=== PATIENT | female | born 1980 | race Caucasian/White ===

== ENCOUNTER 2018-02-13 08:31 | Emergency (ER) | payer SELFPAY ==
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
--- NOTE | 2018-02-13 10:50 | EKG ---
Test Date: 2018-02-13 Test Time: 10:08:31 Link Assembler: DAVIAN MEASUREMENT RESULTS: Intervals: Rate: 73 OH: 136 QRSD: 86 QT: 414 QTc: 456 [place]: P: 65 OH: 136 QRS: 72 T: 56 INTERPRETIVE STATEMENTS: Normal sinus rhythm with sinus arrhythmia normal ECG No previous ECG available for comparison Electronically Signed On 02-13-18 10:49:13 CDT by Toni Tadeo
[2018-02-13 10:53] LABS: Urine Blood 2+ (NEG); Urine Glucose NEGATIVE (NEG); Urine Protein NEGATIVE (NEG); Urine Specific Gravity <1.005 (1.005-1.030)
[2018-02-13 10:54] LABS: Protime INR 1.23
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
[2018-02-13 11:01] LABS: Barbiturates NEGATIVE (NEGATIVE); Benzodiazepines NEGATIVE (NEGATIVE); Cocaine NEGATIVE (NEGATIVE); METHAMPHETAM NEGATIVE (NEGATIVE); Methadone NEGATIVE (NEGATIVE); Opiates NEGATIVE (NEGATIVE); Phencyclidine NEGATIVE (NEGATIVE); THC Cannibis POSITIVE (NEGATIVE)
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
[2018-02-13 11:23] LABS: Absolute Lymphocytes (CBC) 0.8 K/uL (0.7-4.9); Absolute Neutrophil 2.9 K/uL (1.8-8.0); Basophils % 0.6 % (0-1.3); Eosinophils % 0.4 % (0-4.4); Hematocrit 35.8 % (36.0-45.0); Lymphocytes % 17.9 % (15.3-44.8); MCH 39.9 pg (27.0-35.0); MCV 120.2 fL (80-100); MPV 9.6 fL (7.6-11.3); Monocytes % 20.3 % (3.3-12.3); RBC Red Blood Cell Count 2.97 M/uL (3.86-4.86)
[2018-02-13 11:59] LABS: ALT/SGPT 31 U/L (12-78); AST/SGOT 106 U/L (15-37); Albumin 4.1 g/dL (3.4-5.0); Alkaline Phosphatase 151 U/L (45-117); BUN Blood Urea Nitrogen 7 mg/dL (7-18); Bicarbonate 26 mmol/L (21-32); Bilirubin Direct 0.6 mg/dL (0-0.2); Bilirubin Total 1.5 mg/dL (0.2-1.0); Glucose Level 78 mg/dL (74-106); Protein, Total 7.9 g/dL (6.4-8.2); Sodium Level 128 mmol/L (136-145)
[2018-02-13 12:02] LABS: Potassium 2.9 mmol/L (3.5-5.1)
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
[2018-02-13] MEDS ORDERED: POTASSIUM CL SA 10 MEQ TAB PO ONE (12:14)
[2018-02-13 12:19] LABS: Alcohol Serum/Plasma < 3 mg/dL (0-3)
[2018-02-13 12:25] LABS: Anisocytosis 1+; Blood Morphology Comment NOTED (NOT SEEN); Macrocytosis 2+; Platelet Estimate DECR
[2018-02-13 12:50] VITALS: TEMP 97.7
[2018-02-13 12:51] VITALS: BP 128/100; O2SAT 100
== END 2018-02-13 12:44 | disposition home or self-care (01) ==
LOC: ER 08:31
DX: S20.219A Contusion of unspecified front wall of thorax, initial encounter (principal); S80.211A Abrasion, right knee, initial encounter; Y08.89XA Assault by other specified means, initial encounter; Y93.9 Activity, unspecified; Y92.9 Unspecified place or not applicable; I10 Essential (primary) hypertension
CPT/HCPCS: 36415; 70450; 71046; 80048; 80076; 80307; 80320; 80329; 81003; 84703; 85025; 85610; 85730; 93005; 99284

== ENCOUNTER 2023-01-12 17:45 | Emergency (ER) | payer SELFPAY ==
--- OUTSIDE RECORDS SUMMARY | 2023-01-12 17:48 | XMS REPORT | Continuity of Care Document ---
:1980 Author Organization [facility] t Address [address] [place] [address] [address] [place] [address] Care Team Providers Name Role Phone Ronni Dela Cruz Attending Clinician Unavailable Payers Payer Name Policy Type Policy Number Effective Date Expiration Date S ource Problems This patient has no known problems. Allergies, Adverse Reactions, Alerts Allergy Allergy Status Severity Reaction(s) Onset Inactive Treating Comm ents Source Name Type Date Date Clinician No Known DA Active U [facility] Drug 3- Allergie 00:00: s 00 Medications This patient has no known medications. Procedures This patient has no known procedures. Encounters Start End Encounter Admission Attending Care Care Encounter Source Date/Time Date/Time Type Type Clinicians Facility Department ID 2022-11-11 2022-11-11 Emergency Emergency Lanie [facility] [id number] [facility] 22:34:00 22:34:00 Ronni 58 2022-11-11 2022-11-11 Emergency [facility] [id number] [facility] 22:34:00 22:34:00 58 Results Test Description Test Time Test Comments Results Result Comments Source Ethanol Level 2022-11-12 02:38:00 Test Item Value Reference Range Interpretation Comme nts Ethanol (test code = ETOH) 290 mg/dL T he pharmacological response to blood alcohol levels mayvary from individual to individual. The fatal concentrationhas been reported to be >400mg/dL. UA, Urinalysis w [id number] 22:49:00 Test Item Value Reference Range Interpretation Comments Color,Urine (test code = UCOL) Yellow Yellow Clarity,Urine (test code = Clear Clear UCLAR) Ph, Urine (test code = UPH) 8.0 5.0-9.0 N Specific [place],Urine (test <= 1.005 1.005-1.030 N code = USG) Blood,Urine (test code = UBLD) Negative mg/dL Negative Protein,Urine (test code = Negative mg/dL Negative UPRO) Glucose,Urine (UA) (test code Negative mg/dL Negative = UGLU) Ketones,Urine (test code = Negative mg/dL Negative UKET) Nitrate,Urine (test code = Negative Negative UNIT) Bilirubin,Urine (test code = Negative mg/dL Negative UBIL) Urobilinogen,Urine (test code 1.0 E.U./dL Normal = UURO) Leukocyte Esterase,Urine (test Negative mg/dL Negative code = ULEU) RBC,Urine (test code = URBCUF) None Seen /HPF 0-2 WBC,Urine (test code = UWBCUF) None Seen /HPF 0-5 Epithelial Cell,Urine (test 0-5 /HPF 0-5 code = UECUF) Casts,Urine (test code = None Seen /LPF None Seen UCASTUF) Bacteria,Urine (test code = None Seen /hpf None Seen UBACTUF) Drug Screen,[id number] 22:49:00 Test Item Value Reference Range Interpretation Comments PCP Phencyclidine Screen,Urine (test Negative Negative code = PCPU) Amphetamine Screen,Urine (test code Negative Negative = AMPU) Methadone Screen,Urine (test code = Negative Negative METHU) Opiate Screen,Urine (test code = Negative Negative UOPIS) Barbituates Screen,Urine (test code Negative Negative = BARBU) Benzodiazepines Screen,Urine (test Negative Negative code = UBENZS) Cocaine Screen,Urine (test code = Negative Negative UCOCS) Cannabinoid Screen,Urine (test code Positive Negative A = UTHCS) Propoxyphene Screen, Urine (test Negative Negative code = UPROP) Smear [id number] 22:46:00 Test Item Value Reference Range Interpretation Comments Platelet Estimate (test Decreased Normal code = PLTEST) Platelet Morphology Comment Normal Morphology Normal (test code = PLTCOMM) RBC Morphology (test code = Abnormal Normal RM) Macrocytosis (test code = 1+ None Seen A MACROC) Complete Blood Count Auto [id number] 22:46:00 Test Item Value Reference Range Interpretation Comments White Blood Count 3.3 x10 3/uL 4.4-10.5 L (test code = WBCT) Red Blood Count (test 3.24 x10 6/uL 3.75-5.20 L code = RBC) Hemoglobin (test code 11.4 g/dL 12.2-14.8 L = HGBT) Hematocrit (test code 34.3 % 36.5-44.4 L = HCTT) Mean Corpuscular 105.90 fL 80.00-100.00 H Volume (test code = MCV) Mean Corpuscular 35.2 pg 27.0-32.5 H Hemoglobin (test code = MCH) Mean Corpuscular HGB 33.20 g/dL 32.00-37.50 N Conc (test code = MCHC) RDW Coefficient of 13.3 % 11.5-14.5 N Variation (test code = RDWCV) Platelet Count (test 34 x10 3/uL 140.0-440.0 LL Critica l value code = PLTT) called to leonor laguna back by YVONNE SLATER on: 11/11/22 at 234 6by [id number]. Mean Platelet Volume 11.5 fL (test code = MPV) Immature Granulocytes 0.3 % 0.0-5.0 N % (Auto) (test code = IMMGRAN%) Neutrophils % (Auto) 42.5 % 36.0-70.0 N (test code = NE%) Lymphocytes % (Auto) 46.4 % 12.0-44.0 H (test code = LY%) Monocytes % (Auto) 8.1 % 0.0-11.0 N (test code = MO%) Eosinophils % (Auto) 2.4 % 0.0-7.0 N (test code = EO%) Basophils % (Auto) 0.3 % 0.0-2.0 N (test code = BA%) Immature Granulocytes 0.01 x10 3/uL # (Auto) (test code = IMMGRAN#) Neutrophils # (Auto) 1.4 x10 3/uL 1.6-7.4 L (test code = NE#) Lymphocytes # (Auto) 1.55 x10 3/uL 0.50-4.60 N (test code = LY#) Monocytes # (Auto) 0.27 x10 3/uL 0.00-1.20 N (test code = MO#) Eosinophils # (Auto) 0.08 x10 3/uL 0.00-0.74 N (test code = EO#) Basophils # (Auto) 0.01 x10 3/uL 0.00-0.21 N (test code = BA#) nRBC Abs (test code = 0 NRBCA) nRBC Pct (test code = 0 % NRBCP) Comprehensive Metabolic [id number] 22:46:00 Test Item Value Reference Range Interpretation Comments SODIUM (test code = NA) 147.0 mmol/L 136.0-145.0 H Potassium,K (test code = 3.6 mmol/L 3.0-5.1 N K) Chloride (test code = 110 mmol/L 98-107 H CL) Carbon Dioxide (test 28 mmol/L 20-31 N code = CO2) Anion Gap (test code = 9 mmol/L 5-15 N GAP) Blood Urea Nitrogen 7 mg/dL 9-23 L (test code = BUN) Creatinine (test code = 0.53 mg/dL 0.55-1.02 L CREATT) Creatinine Clr Calc 115.55 Pharmacy (test code = mL/min CRCLPHA) Estimated Glomerular 119 See_Comment Reporte d eGFR is Filt Rate (test code = based on the EGFR.XX) CKD-EPI 202 equation thatdo es not use a race coefficient. Additional information can be found at:[id number] cb_ egfr_summary_fl adriana 5.pdf (kidney.o rg) [Automated message] The system which generated this result transmit nick reference range : >=90 ml/min/1.73m2. The reference range was not used to interpret this result as normal/abnormal . BUN/Creatinine Ratio 13 ratio 10-20 N (test code = BCRATIO) Glucose (test code = 89 mg/dL 74-106 N GLU) Osmolality,Calculated 300.5 (test code = OSMOC) Calcium (test code = CA) 8.6 mg/dL 8.3-10.6 N Bilirubin,Total (test 1.4 mg/dL 0.2-1.1 H code = BILIT) Aspartate Amino 61 U/L 0-34 H Transferase (test code = AST) Alanine Aminotransferase 17 U/L 10-49 N (test code = ALT) Total Protein (test code 6.3 g/dL 5.7-8.2 N = TP) Albumin Level (test code 3.2 g/dL 3.2-4.8 N = ALB) Globulin (test code = 3.1 mg/dL 2.3-3.5 N GLOB) Albumin/Globulin Ratio 1.0 ratio 0.8-2.0 N (test code = AGRATIO) Alkaline Phosphatase 79 U/L 46-116 N (test code = ALP) Ethanol [id number] 22:46:00 Test Item Value Reference Range Interpretation Comments Ethanol (test code 322 mg/dL The pharm acological = ETOH) response to blo od alcohol levels mayvary from individual to i ndividual. The fatal brenda ntrationhas been reported t o be >400mg/dL. Coronavirus NAAT, [id number] 22:46:00 Test Item Value Reference Range Interpretation Comments Coronavirus NAAT, COVD19 Reference Range: (test code = Negative [id number]) Coronavirus NAAT, COVD19 ical-devices/emergenc (test code = s-tpc-dytqhmjxytlmqs. [id number]) SARS-CoV-2 NAAT Result: Negative by RT-PCR (test code = SARS-CoV-2 NAAT Result:)
--- NOTE | 2023-01-12 18:24 | ER ---
Nurse's Notes [facility] Name: Ranjana Shearer Age: 42 yrs Sex: Female : 1980 Arrival Date: 01/12/2023 Time: 17:45 Bed IW4 Private MD: Diagnosis: Other chronic pain Presentation: 01/12 18:18 Chief complaint: Pain all over x 1 week. Coronavirus screen: At this time, the client hb does not indicate any symptoms associated with coronavirus-19. Ebola Screen: No symptoms or risks identified at this time. Initial Sepsis Screen: Does the patient meet any 2 criteria? No. Patient's initial sepsis screen is negative. Does the patient have a suspected source of infection? No. Patient's initial sepsis screen is negative. Risk Assessment: Do you want to hurt yourself or someone else? Patient reports no desire to harm self or others. Onset of symptoms was January 05, 2023. 18:18 Method Of Arrival: Ambulatory hb 18:21 Acuity: ARABELLA 4 hb Triage Assessment: 18:21 General: Appears in no apparent distress. Behavior is calm, cooperative. Pain: Pain hb currently is 10 out of 10 on a pain scale. Neuro: Level of Consciousness is awake, alert, obeys commands, Oriented to person, place, time, situation. Cardiovascular: Patient's skin is warm and dry. Respiratory: Respiratory effort is even, unlabored, Respiratory pattern is regular, symmetrical. Historical: - Allergies: 18:19 No Known Allergies; hb - Home Meds: 18:19 Fluoxetine Oral [Active]; Seroquel Oral [Active]; Trazodone Oral [Active]; pramipexole hb oral [Active]; - PMHx: 18:19 elevated liver enzymes; Hyperlipidemia; Hypertension; Depressive disorder; hb - Immunization history:: Adult Immunizations up to date. - Social history:: Smoking status: Patient reports the use of cigarette tobacco products. Vital Signs: 18:18 BP 135 / 87; Pulse 91; Resp 16; Temp 98.2; Pulse Ox 100% on R/A; hb ED Course: 17:49 Patient arrived in ED. mr 18:06 [facility]C [facility] snw 18:07 Ortiz Vargas MD is Attending Physician. snw 18:21 Triage completed. hb 18:21 Arm band placed on. hb Administered Medications: 18:25 Drug: Ketorolac IM 30 mg Route: IM; Site: right deltoid; hb Outcome: 18:23 Discharge ordered by . anne 18:27 Patient left the ED. hb Signatures: Rosa Vasquez, KELLY-C PRODUCTION REPRODUCTION MANAGER-Csnw Neda Hadley Heather, RN RN hb
--- NOTE | 2023-01-12 18:24 | EDPHYS ---
Physician Documentation [facility] Name: Ranjana Shearer Age: 42 yrs Sex: Female : 1980 Arrival Date: 01/12/2023 Time: 17:45 Bed IW4 Private MD: ED Physician Ortiz Vargas Historical: - Allergies: 01/12 18:19 No Known Allergies; hb - Home Meds: 18:19 Fluoxetine Oral [Active]; Seroquel Oral [Active]; Trazodone Oral [Active]; pramipexole hb oral [Active]; - PMHx: 18:19 elevated liver enzymes; Hyperlipidemia; Hypertension; Depressive disorder; hb - Immunization history:: Adult Immunizations up to date. - Social history:: Smoking status: Patient reports the use of cigarette tobacco products. ROS: 18:24 Constitutional: Negative for fever, chills, and weight loss, chronic pain from snw neuropathy/RLS. Pt states she has had pain all over for the past week. No trauma, no fever, no other s/s Eyes: Negative for injury, pain, redness, and discharge, ENT: Negative for injury, pain, and discharge, Neck: Negative for injury, pain, and swelling, Cardiovascular: Negative for chest pain, palpitations, and edema, Respiratory: Negative for shortness of breath, cough, wheezing, and pleuritic chest pain, Abdomen/GI: Negative for abdominal pain, nausea, vomiting, diarrhea, and constipation, Back: Negative for injury and pain, : Negative for injury, bleeding, discharge, and swelling, MS/Extremity: Negative for injury and deformity, Skin: Negative for injury, rash, and discoloration, Neuro: Negative for headache, weakness, numbness, tingling, and seizure, Psych: Negative for depression, anxiety, suicide ideation, homicidal ideation, and hallucinations. Exam: 18:24 Constitutional: This is a well developed, well nourished patient who is awake, alert, snw and in no acute distress. Head/Face: Normocephalic, atraumatic. Eyes: Pupils equal round and reactive to light, extra-ocular motions intact. Lids and lashes normal. Conjunctiva and sclera are non-icteric and not injected. Cornea within normal limits. Periorbital areas with no swelling, redness, or edema. ENT: Nares patent. No nasal discharge, no septal abnormalities noted. Tympanic membranes are normal and external auditory canals are clear. Oropharynx with no redness, swelling, or masses, exudates, or evidence of obstruction, uvula midline. Mucous membranes moist. Neck: Trachea midline, no thyromegaly or masses palpated, and no cervical lymphadenopathy. Supple, full range of motion without nuchal rigidity, or vertebral point tenderness. No Meningismus. Chest/axilla: Normal chest wall appearance and motion. Nontender with no deformity. No lesions are appreciated. Cardiovascular: Regular rate and rhythm with a normal S1 and S2. No gallops, murmurs, or rubs. Normal PMI, no JVD. No pulse deficits. Respiratory: Lungs have equal breath sounds bilaterally, clear to auscultation and percussion. No rales, rhonchi or wheezes noted. No increased work of breathing, no retractions or nasal flaring. Abdomen/GI: Soft, non-tender, with normal bowel sounds. No distension or tympany. No guarding or rebound. No evidence of tenderness throughout. Back: No spinal tenderness. No costovertebral tenderness. Full range of motion. Skin: Warm, dry with normal turgor. Normal color with no rashes, no lesions, and no evidence of cellulitis. MS/ Extremity: Pulses equal, no cyanosis. Neurovascular intact. Full, normal range of motion. Neuro: Awake and alert, GCS 15, oriented to person, place, time, and situation. Cranial nerves II-XII grossly intact. Motor strength 5/5 in all extremities. Sensory grossly intact. Cerebellar exam normal. Normal gait. Psych: Awake, alert, with orientation to person, place and time. Behavior, mood, and affect are within normal limits. Vital Signs: 18:18 BP 135 / 87; Pulse 91; Resp 16; Temp 98.2; Pulse Ox 100% on R/A; hb MDM: 18:23 Patient medically screened. snw Administered Medications: 18:25 Drug: Ketorolac IM 30 mg Route: IM; Site: right deltoid; hb Disposition Summary: 01/12/23 18:23 Discharge Ordered Location: Home snw Condition: Stable snw Diagnosis - Other chronic pain snw Followup: snw - With: Emergency Department - When: As needed - Reason: Worsening of condition Followup: snw - With: Private Physician - When: 2 - 3 days - Reason: Recheck today's complaints, Continuance of care, Re-evaluation by your physician Discharge Instructions: - Discharge Summary Sheet snw - Chronic Pain, Adult snw Forms: - Medication Reconciliation Form snw - Thank You Letter snw - Antibiotic Education snw - Prescription Opioid Use snw Signatures: Rosa Vasquez, KELLY-C [employer]UP[employer] MELTING SUPERVISOR-Csnw Imani Burr, RN RN hb
[2023-01-12] MEDS ORDERED: KETOROLAC 30 MG/ML INJ ONE (18:30)
[2023-01-12 19:00] VITALS: BP 135/87; TEMP 98.2; O2SAT 100
== END 2023-01-12 18:27 | disposition home or self-care (01) ==
LOC: ER 17:45
DX: G89.29 Other chronic pain (principal)

== ENCOUNTER 2023-05-05 17:27 | Observation (INO) | payer SELFPAY ==
--- OUTSIDE RECORDS SUMMARY | 2023-05-05 17:30 | XMS REPORT | Continuity of Care Document ---
:1980 Author Organization [facility] t Address [address] [place] [address]. [address] [place] [address] Care Team Providers Name Role Phone Ronni Dela Cruz Attending Clinician Unavailable CÉSAR Attending Clinician Unavailable CÉSAR Admitting Clinician Unavailable Payers Payer Name Policy Type Policy Number Effective Date Expiration Date S ource Problems This patient has no known problems. Allergies, Adverse Reactions, Alerts Allergy Allergy Status Severity Reaction(s) Onset Inactive Treating Comm ents Source Name Type Date Date Clinician No Known DA Active U [facility] Drug 3-19 Allergie 00:00: s 00 Medications This patient has no known medications. Procedures This patient has no known procedures. Encounters Start End Encounter Admission Attending Care Care Encounter Source Date/Time Date/Time Type Type Clinicians Facility Department ID 2022-11-11 2022-11-11 Emergency Emergency Lanie [facility] [id number] [facility] 22:34:00 22:34:00 Ronni 58 2022-11-11 2022-11-11 Emergency [facility] [id number] 26 [facility] 22:34:00 22:34:00 58 2022-03-21 2022-03-21 Outpatient BONI DESIR [facility] [id number] [place] 00:00:00 00:00:00 HN 0727 da [facility] Outre h Program Results Test Description Test Time Test Comments Results Result Comments Source Ethanol Level 2022-11-12 02:38:00 Test Item Value Reference Range Interpretation Comme nts Ethanol (test code = ETOH) 290 mg/dL T he pharmacological response to blood alcohol levels mayvary from individual to individual. The fatal concentrationhas been reported to be >400mg/dL. Drug Screen,[id number] 22:49:00 Test Item Value Reference Range Interpretation [...] Urine (test Negative Negative code = UPROP) UA, Urinalysis w [id number] 22:49:00 Test Item Value Reference Range Interpretation Comments Color,Urine (test code = UCOL) Yellow Yellow Clarity,Urine (test code = Clear Clear UCLAR) Ph, Urine (test code = UPH) 8.0 5.0-9.0 N Specific [place],Urine (test <= 1.005 1.005-1.030 N code = [...] = None Seen /hpf None Seen UBACTUF) Comprehensive Metabolic [id number] 22:46:00 Test Item Value Reference Range Interpretation [...] code = based on the EGFR.XX) CKD-EPI 2020 equation thatdo es not use a race coefficient. Additional information can be found at:[id number] cb_ egfr_summary_fl adriana 5.pdf (kidney.o rg) [Automated [...] 46-116 N (test code = ALP) Ethanol [id number] 22:46:00 Test Item Value Reference Range Interpretation Comments Ethanol (test code 322 mg/dL The pharm acological = ETOH) response to blo od alcohol levels mayvary from individual to i ndividual. The fatal brenda ntrationhas been reported t o be >400mg/dL. Coronavirus NAAT, [id number] 22:46:00 Test Item Value Reference Range Interpretation Comments Coronavirus NAAT, COVD19 Reference Range: (test code = Negative [id number]) Coronavirus NAAT, COVD19 ical-devices/emergenc (test code = d-rfu-teavmikrhgoyvb. [id number]) SARS-CoV-2 NAAT Result: Negative by RT-PCR (test code = SARS-CoV-2 NAAT Result:) Smear [id number] 22:46:00 Test Item Value Reference Range Interpretation Comments Platelet Estimate (test Decreased Normal code = PLTEST) Platelet Morphology Comment Normal Morphology Normal (test code = PLTCOMM) RBC Morphology (test code = Abnormal Normal RM) Macrocytosis (test code = 1+ None Seen A MACROC) Complete Blood Count Auto [id number] 22:46:00 Test Item Value Reference Range Interpretation [...] leonor laguna back by YVONNE SLATER on: 03/19/23 at 234 6by [id number]. Mean Platelet Volume [...]
[2023-05-05 18:17] LABS: Absolute Lymphocytes (CBC) 1.1 K/uL (0.7-4.9); Hematocrit 36.2 % (36.0-45.0); Lymphocytes % 17.5 % (15.3-44.8); MCV 102.1 fL (80-100); RBC Red Blood Cell Count 3.55 M/uL (3.86-4.86)
[2023-05-05] MEDS ORDERED: ONDANSETRON 4 MG/2 ML VIAL ONE (18:28)
[2023-05-05] MEDS ORDERED: NA CHLORIDE 0.9% 1,000 ML ONE (18:28)
[2023-05-05] MEDS ORDERED: FAMOTIDINE 20 MG/2 ML VIAL IV ONE (18:28)
[2023-05-05 18:37] LABS: Specific Gravity 1.019 (1.005-1.030); Urine Bacteria None Seen /HPF (<20); Urine Bilirubin NEGATIVE (Negative); Urine Blood Negative (Negative); Urine Clarity Extremely Turbid (Clear); Urine Color Yellow (Yellow); Urine Glucose NEGATIVE (Negative); Urine Mucus Slight /HPF (None Seen); Urine Protein NEGATIVE (Negative); Urine Trichomonas Present /HPF (None Seen); Urine Urobilinogen Normal (Normal); Urine pH 5.5 (5.0-7.0)
[2023-05-05 18:37] LABS: Bilirubin Total 2.1 mg/dL (0.2-1.0); Potassium 2.7 mEq/L (3.5-5.1); Protein, Total 7.9 g/dL (6.4-8.2)
[2023-05-05 18:44] LABS: Barbiturates NEGATIVE (NEGATIVE); Benzodiazepines NEGATIVE (NEGATIVE); Cocaine NEGATIVE (NEGATIVE); METHAMPHETAM NEGATIVE (NEGATIVE); Methadone NEGATIVE (NEGATIVE); Opiates NEGATIVE (NEGATIVE); Phencyclidine NEGATIVE (NEGATIVE); THC Cannibis POSITIVE (NEGATIVE)
[2023-05-05 18:53] LABS: Platelets 55 thou/uL (152-406)
[2023-05-05] MEDS ORDERED: MORPHINE 4 MG/ML SYR ONE (19:27)
[2023-05-05 22:03] LABS: Blood Morphology Comment NOT SEEN (NOT SEEN); Platelet Estimate DECR; White Blood Cell Scan OK (OK)
[2023-05-05] MEDS ORDERED: FENTANYL CITR 100 MCG/2 ML ONE (22:03)
--- NOTE | 2023-05-05 22:33 | RAD REPORT ---
EXAM DESCRIPTION: CT - Abdomen Pelvis W Contrast - 05/05/2023 10:12 pm CLINICAL HISTORY: ABD PAIN COMPARISON: No comparisons TECHNIQUE: Thin cut axial CT imaging of the abdomen and pelvis was performed following intravenous a dministration of 78 mL Isovue 300. Multiplanar reformats were generated and reviewed. All CT scans are performed using dose optimization technique as appropriate and may include automated exposure control or mA/KV adjustment according to patient size. FINDINGS: No suspicious findings in the lung bases. The liver shows nodular contour, suggesting cirrhosis. Adrenal glands, spleen, and pancreas show no s uspicious findings. Gallbladder is markedly distended with numerous small layering dependent calculi. There may be pericholecystic fat stranding, mild, although motion artifact in the upper abdomen some what limits evaluation. Symmetric renal function is seen with no hydronephrosis or suspicious renal mass. No dilated bowel loops or bowel wall thickening. No free air, free fluid or inflammatory stranding. N o hernia, mass or bulky lymphadenopathy. The urinary bladder is without significant finding. No suspicious bony findings. IMPRESSION: Distended gallbladder with numerous dependent layering small calculi. Suggestion of mild pericholecystic fat stranding. Please correlate clinically for evidence of acute cholecystitis. No other acute intra-abdominal process.
[2023-05-05] MEDS ORDERED: POTASSIUM CL SA 10 MEQ TAB PO ONE (22:42)
[2023-05-05] MEDS ORDERED: KCL 20 MEQ/100 mL IVPB 100 ML IV ONE (22:43)
[2023-05-05 22:50] LABS: Specific Gravity 1.019 (1.005-1.030)
[2023-05-06] MEDS ORDERED: PIPERACIL/TAZO 3.375 GM VIAL IV ONE (00:15)
[2023-05-06] MEDS ORDERED: NA CHLORIDE 0.9% 100 ML ONE (00:15)
--- NOTE | 2023-05-06 00:30 | EDPHYS ---
Physician Documentation [facility] Name: Ranjana Shearer Age: 43 yrs Sex: Female : 1980 Arrival Date: 05/05/2023 Time: 17:27 Bed 17 Private MD: ED Physician Luis Mas HPI: 05/05 18:43 This 43 yrs old Female presents to ER via Ambulatory with complaints of abdominal pain. sb4 18:43 The patient presents with abdominal pain in the epigastric area. Onset: The sb4 symptoms/episode began/occurred today. The symptoms do not radiate. Associated signs and symptoms: Pertinent positives: nausea, vomiting, and diarrhea, Pertinent negatives: dysuria, fever. The symptoms are described as burning. Modifying factors: The symptoms are alleviated by nothing, the symptoms are aggravated by nothing. The patient has not experienced similar symptoms in the past. The patient has not recently seen a physician. Historical: - Allergies: 17:48 No Known Allergies; nj1 - PMHx: 17:48 depressive disorder; elevated liver enzymes; Hyperlipidemia; Hypertension; nj1 - Immunization history:: Client reports receiving the 2nd dose of the Covid vaccine. - Social history:: Smoking status: Patient reports the use of cigarette tobacco products, smokes one pack cigarettes per day. ROS: 18:43 Constitutional: Negative for fever, chills, and weight loss. sb4 18:43 Abdomen/GI: Positive for abdominal pain, nausea, vomiting, and diarrhea. 18:43 All other systems are negative. Exam: 18:43 Head/Face: Normocephalic, atraumatic. Eyes: Extra-ocular motions intact. Periorbital sb4 areas with no swelling, redness, or edema. ENT: Mucous membranes moist. Cardiovascular: Regular rate and rhythm with a normal S1 and S2. Respiratory: Lungs have equal breath sounds bilaterally, clear to auscultation and percussion. No rales, rhonchi or wheezes noted. No increased work of breathing, no retractions or nasal flaring. MS/ Extremity: Pulses equal, no cyanosis. Neurovascular intact. Full, normal range of motion. 18:43 Constitutional: The patient appears alert, awake, in obvious distress, moderately distressed. 18:43 Skin: heat rash, on the chest. Vital Signs: 17:39 BP 158 / 93; Pulse 62; Resp 16; Pulse Ox 100% on R/A; db 17:46 BP 158 / 93; Pulse 60; Resp 17; Temp 97.6(O); Pulse Ox 100% on R/A; Weight 81.65 kg; nj1 Height 5 ft. 3 in. ; Pain 06/04; 18:00 BP 153 / 79; Pulse 57; Resp 16; Pulse Ox 100% ; db 19:15 BP 105 / 82; Pulse 55; Resp 18; Pulse Ox 96% ; cm10 20:00 BP 136 / 84; Pulse 43; Resp 18; Pulse Ox 99% on R/A; cm10 20:30 BP 118 / 66; Pulse 50; Resp 18; Pulse Ox 99% ; cm10 21:50 BP 129 / 69; Pulse 53; Resp 18; Pulse Ox 100% ; cm10 22:30 BP 139 / 82; Pulse 48; Resp 18; Pulse Ox 100% on R/A; cm10 23:00 BP 148 / 77; Pulse 52; Resp 18; Pulse Ox 100% ; cm10 23:30 BP 142 / 83; Pulse 49; Resp 18; Pulse Ox 97% on R/A; cm10 05/06 00:07 BP 150 / 80; Pulse 49; Resp 18; Pulse Ox 97% ; cm10 00:30 BP 147 / 82; Pulse 49; Resp 18; Pulse Ox 98% ; cm10 01:00 BP 155 / 82; Pulse 49; Resp 18; Pulse Ox 98% ; cm10 05/05 17:46 Body Mass Index 31.89 (81.65 kg, 160.02 cm) nj1 17:46 Pain Scale: Adult nj MDM: 05/05 17:36 Patient medically screened. sb4 18:43 Differential diagnosis: cholecystitis, Cholelithiasis, gastritis, gastroesophageal sb4 reflux disease, non-specific abd pain, pancreatitis, Peptic Ulcer Disease. 05/06 00:28 Data reviewed: vital signs, nurses notes, lab test result(s), radiologic studies, I sb4 have discussed the patient's presentation/case with the attending Emergency Department Physician; and as a result, I will admit patient. Consideration of Admission/Observation Patient was admitted/placed on observation. Management of patient was discussed with the following: Hospitalist: GI Dr. Benedict, agrees to consult, requests MRCP in morning. General Surgery Dr. Gómez, agrees to consult. Requests patient NPO. Care significantly affected by the following chronic conditions: Hypertension. Counseling: I had a detailed discussion with the patient and/or guardian regarding the historical points, exam findings, and any diagnostic results supporting the discharge/admit diagnosis, lab results, radiology results, the need for further work-up and treatment in the hospital. 05/05 17:45 Order name: CBC with Diff; Complete Time: 22:07 [facility] 05/05 17:45 Order name: CMP; Complete Time: 18:39 [facility] 05/05 17:45 Order name: Lipase; Complete Time: 18:39 [facility] 05/05 17:45 Order name: Test, Urine; Complete Time: 22:52 [facility] 05/05 17:45 Order name: Urinalysis w/ reflexes; Complete Time: 18:39 [facility] 05/05 18:22 Order name: UDS; Complete Time: 18:46 [facility] 05/05 18:40 Order name: Urine Culture [facility] 05/05 22:04 Order name: CBC Smear Scan; Complete Time: 22:07 [facility] 05/06 01:09 Order name: Liver (Hepatic) Function [facility] 05/06 01:09 Order name: Urinalysis w/ reflexes [facility] 05/06 01:09 Order name: Basic Metabolic Panel [facility] 05/06 01:09 Order name: Basic Metabolic Panel [facility] 05/06 01:09 Order name: CBC with Automated Diff [facility] 05/06 01:09 Order name: CBC with Automated Diff [facility] 05/06 01:09 Order name: Comprehensive Metabolic Panel [facility] 05/06 01:09 Order name: Comprehensive Metabolic Panel [facility] 05/06 01:09 Order name: Protime (+INR) [facility] 05/06 01:09 Order name: Protime (+INR) [facility] 05/05 17:45 Order name: CT Abd/Pelvis - IV Contrast Only; Complete Time: 22:36 [facility] 05/05 22:37 Order name: US Abdomen Limited [facility] 05/06 01:09 Order name: CONS Physician Consult [facility] 05/06 01:09 Order name: CONS Physician Consult [facility] 05/06 01:09 Order name: NPO [facility] 05/05 17:45 Order name: IV Saline Lock; Complete Time: 18:28 [facility] 05/05 17:45 Order name: Labs collected and sent; Complete Time: 18:28 sb4 Administered Medications: 05/05 18:15 Drug: NS 0.9% IV 1000 ml Route: IV; Rate: 1 bolus; Site: left antecubital; 19:00 Follow up: Response: No adverse reaction; IV Status: Completed infusion; IV Intake: cm10 1000ml 18:15 Drug: Famotidine IVP 20 mg Route: IVP; Site: left antecubital; 05/06 01:33 Follow up: Response: No adverse reaction [facility] 05/05 18:15 Drug: Ondansetron IVP 4 mg Route: IVP; Site: left antecubital; 05/06 01:33 Follow up: Response: No adverse reaction [facility] 05/05 19:16 Drug: morphine IVP or IV 4 mg Route: IVP; Infused Over: 4 mins; Site: left hand; 05/06 00:55 Follow up: Response: No adverse reaction [facility] 05/05 21:56 Drug: fentaNYL (PF) IVP 50 mcg Route: IVP; Site: left upper arm; [facility] 05/06 00:54 Follow up: Response: No adverse reaction [facility] 05/05 22:45 Drug: Potassium Chloride IV 20 mEq Route: IV; Rate: calculated rate; Site: left hand; [facility] 05/06 00:55 Follow up: Response: No adverse reaction; IV Status: Completed infusion; IV Intake: cm10 100ml 05/05 22:45 Drug: Potassium Chloride PO 40 mEq Route: PO; [facility] 05/06 00:54 Follow up: Response: No adverse reaction [facility] 00:14 Drug: Piperacillin-Tazobactam IVPB 3.375 grams Route: IVPB; Infused Over: 60 mins; 10 Site: left hand; 01:30 Follow up: Response: No adverse reaction; IV Status: Completed infusion; IV Intake: cm10 100ml Disposition Summary: 05/06/23 00:29 Hospitalization Ordered Hospitalization Status: Inpatient Admission sb4 Provider: Juancarlos Willett Location: Telemetry/[facility] (Inpatient) sb4 Condition: Fair sb4 Problem: new sb4 Symptoms: are unchanged sb4 Bed/Room Type: Standard sb4 Room Assignment: 427(05/06/23 01:19) mw Diagnosis - Acute cholecystitis sb4 Forms: - Medication Reconciliation Form sb4 - SBAR form sb4 - Leadership Thank You Letter sb4 Addendum: 05/08/2023 23:26 Co-signature as Attending Physician, Luis Mas MD I reviewed the patient's care r n provided by the Advanced Practice Provider and agree with the diagnosis and treatment plan. Signatures: Dispatcher [employer] EDKY Danisha Bustamante RN RN mw Nieto, Roman, MD MD rn Benton, Danielle RN Leisa Shultz, PAEmily PAEmily sb4 Donna Palmer RN RN nj1 Belkis Martínez RN RN cm10 Corrections: (The following items were deleted from the chart) 05/06 01:19 00:29 sbHumberto pantoja
--- NOTE | 2023-05-06 00:30 | ER ---
Nurse's Notes [facility] Name: Ranjana Shearer Age: 43 yrs Sex: Female : 1980 Arrival Date: 05/05/2023 Time: 17:27 Bed 17 Private MD: Diagnosis: Acute cholecystitis Presentation: 05/05 17:46 Chief complaint: Patient states: Abdominal pain, nausea, vomiting and diarrhea that nj1 started a couple hours ago. Coronavirus screen: Vaccine status: Patient reports receiving the 2nd dose of the covid vaccine. Ebola Screen: Patient denies travel to an Ebola-affected area in the 21 days before illness onset. Initial Sepsis Screen: Does the patient meet any 2 criteria? No. Patient's initial sepsis screen is negative. Does the patient have a suspected source of infection? No. Patient's initial sepsis screen is negative. Risk Assessment: Do you want to hurt yourself or someone else? Patient reports no desire to harm self or others. Onset of symptoms was May 05, 2023. 17:46 Method Of Arrival: Ambulatory [facility] 17:46 Acuity: ARABELLA 3 nj1 Historical: - Allergies: 17:48 No Known Allergies; nj1 - PMHx: 17:48 depressive disorder; elevated liver enzymes; Hyperlipidemia; Hypertension; nj1 - Immunization history:: Client reports receiving the 2nd dose of the Covid vaccine. - Social history:: Smoking status: Patient reports the use of cigarette tobacco products, smokes one pack cigarettes per day. Screenin:29 [facility] ED Fall Risk Assessment (Adult) Score/Fall Risk Level 0 - 2 = Low Risk db Oriented to surroundings, Maintained a safe environment. Abuse screen: Denies threats or abuse. Denies injuries from another. Nutritional screening: No deficits noted. Tuberculosis screening: No symptoms or risk factors identified. Assessment: 18:10 Reassessment: Patient appears in no apparent distress at this time. Patient and/or db family updated on plan of care and expected duration. Pain level reassessed. Patient is alert, oriented x 3, equal unlabored respirations, skin warm/dry/pink. Reassessment: reports eating a corn dog today. General: Appears in no apparent distress. comfortable, Behavior is calm, cooperative. Pain: Complains of pain in abdomen. Neuro: Level of Consciousness is awake, alert, obeys commands, Oriented to person, place, time, situation. GI: Abdomen is flat, Reports lower abdominal pain, cramping, nausea, vomiting. 20:00 Reassessment: Pt noted to have unscrewed IV fluids from IV and blood all over sheets cm10 and room. New sheets provided and patient given wipes to clean herself. 21:00 Neuro: No deficits noted. Level of Consciousness is awake, alert, obeys commands, cm10 Oriented to person, place, time, situation. Cardiovascular: No deficits noted. Respiratory: No deficits noted. Airway is patent Respiratory effort is even, unlabored, Respiratory pattern is regular, symmetrical. GI: Abdomen is flat, Abd is soft Abdomen is tender to palpation in right upper quadrant Reports lower abdominal pain, upper abdominal pain, cramping, nausea, vomiting. 21:30 Reassessment: Pt reports that her abdominal pain is returning. Provider made aware. cm10 21:30 Reassessment: Patient states symptoms have not improved. cm10 22:26 Reassessment: Patient and/or family updated on plan of care and expected duration. Pain cm10 level reassessed. Patient is alert, oriented x 3, equal unlabored respirations, skin warm/dry/pink. 22:40 Cardiovascular: Rhythm is sinus bradycardia. cm10 05/06 01:22 Reassessment: Patient and/or family updated on plan of care and expected duration. Pain cm10 level reassessed. pt sleeping. respirations even and unlabored. Vital Signs: 05/05 17:39 BP 158 / 93; Pulse 62; Resp 16; Pulse Ox 100% on R/A; db 17:46 BP 158 / 93; Pulse 60; Resp 17; Temp 97.6(O); Pulse Ox 100% on R/A; Weight 81.65 kg; nj1 Height 5 ft. 3 in. ; Pain 06/04; 18:00 BP 153 / 79; Pulse 57; Resp 16; Pulse Ox 100% ; db 19:15 BP 105 / 82; Pulse 55; Resp 18; Pulse Ox 96% ; cm10 20:00 BP 136 / 84; Pulse 43; Resp 18; Pulse Ox 99% on R/A; cm10 20:30 BP 118 / 66; Pulse 50; Resp 18; Pulse Ox 99% ; cm10 21:50 BP 129 / 69; Pulse 53; Resp 18; Pulse Ox 100% ; cm10 22:30 BP 139 / 82; Pulse 48; Resp 18; Pulse Ox 100% on R/A; cm10 23:00 BP 148 / 77; Pulse 52; Resp 18; Pulse Ox 100% ; cm10 23:30 BP 142 / 83; Pulse 49; Resp 18; Pulse Ox 97% on R/A; cm10 05/06 00:07 BP 150 / 80; Pulse 49; Resp 18; Pulse Ox 97% ; cm10 00:30 BP 147 / 82; Pulse 49; Resp 18; Pulse Ox 98% ; cm10 01:00 BP 155 / 82; Pulse 49; Resp 18; Pulse Ox 98% ; cm10 05/05 17:46 Body Mass Index 31.89 (81.65 kg, 160.02 cm) nj1 17:46 Pain Scale: Adult [facility] ED Course: 05/05 17:28 Patient arrived in ED. rg4 17:29 Leisa Godfrey PA-C is PHCP. sb4 17:29 Luis Mas MD is Attending Physician. sb4 17:45 Naomi Holland, YVONNE is Primary Nurse. db 17:48 Triage completed. nj1 17:48 Arm band placed on. nj1 18:10 Inserted saline lock: 22 gauge in left hand, using aseptic technique. Blood collected. db 21:42 Inserted saline lock: 20 gauge in left upper arm, using aseptic technique. ultrasound as6 guided, long catheter. 22:[address] cm10 22:14 CT Abd/Pelvis - IV Contrast Only In Process Unspecified. EDMS 22:16 Patient moved back from CT. cm10 22:40 Client placed on continuous cardiac and pulse oximetry monitoring. NIBP monitoring cm10 applied. 23:01 No provider procedures requiring assistance completed. cm10 23:20 US Abdomen Limited In Process Unspecified. EDMS 05/06 00:29 Juancarlos Willett is Hospitalizing Provider. sb4 01:22 Patient has correct armband on for positive identification. Call light in reach. cm10 Provided Education on: N/A. 01:23 Patient admitted, IV remains in place. cm10 Administered Medications: 05/05 18:15 Drug: NS 0.9% IV 1000 ml Route: IV; Rate: 1 bolus; Site: left antecubital; db 19:00 Follow up: Response: No adverse reaction; IV Status: Completed infusion; IV Intake: cm10 1000ml 18:15 Drug: Famotidine IVP 20 mg Route: IVP; Site: left antecubital; 05/06 01:33 Follow up: Response: No adverse reaction [facility] 05/05 18:15 Drug: Ondansetron IVP 4 mg Route: IVP; Site: left antecubital; 05/06 01:33 Follow up: Response: No adverse reaction [facility] 05/05 19:16 Drug: morphine IVP or IV 4 mg Route: IVP; Infused Over: 4 mins; Site: left hand; 05/06 00:55 Follow up: Response: No adverse reaction [facility] 05/05 21:56 Drug: fentaNYL (PF) IVP 50 mcg Route: IVP; Site: left upper arm; [facility] 05/06 00:54 Follow up: Response: No adverse reaction [facility] 05/05 22:45 Drug: Potassium Chloride IV 20 mEq Route: IV; Rate: calculated rate; Site: left hand; [facility] 05/06 00:55 Follow up: Response: No adverse reaction; IV Status: Completed infusion; IV Intake: cm10 100ml 05/05 22:45 Drug: Potassium Chloride PO 40 mEq Route: PO; [facility] 05/06 00:54 Follow up: Response: No adverse reaction [facility] 00:14 Drug: Piperacillin-Tazobactam IVPB 3.375 grams Route: IVPB; Infused Over: 60 mins; cm10 Site: left hand; 01:30 Follow up: Response: No adverse reaction; IV Status: Completed infusion; IV Intake: cm10 100ml Medication: 01:23 VIS not applicable for this client. cm10 Intake: 05/05 19:00 IV: 1000ml; Total: 1000ml. cm10 05/06 00:55 IV: 100ml; Total: 1100ml. cm10 01:30 IV: 100ml; Total: 1200ml. cm10 Outcome: 00:29 Decision to Hospitalize by Provider. sb4 01:29 Admitted to Med/surg accompanied by nurse, via wheelchair, room 427. cm10 01:29 Condition: good 01:29 Instructed on the need for admit. 01:44 Admitted to Med/surg Report called to YVONNE Brooks cm10 02:06 Patient left the ED. cm10 Signatures: [facility] Indira Tellez rg4 Clyde Delgadillo RN RN as6 Naomi Holland RN RN Leisa Oliva PA-C PAEmily sb4 Donna Palmer RN RN nj1 Belkis Martínez RN RN cm10 Corrections: (The following items were deleted from the chart) 05/05 23:30 22:40 Cardiovascular: Rhythm is sinus rhythm cm10 cm10 05/06 01:44 01:29 Instructed on the need for admit, cm10 cm10
--- NOTE | 2023-05-06 00:51 | P.HP ---
Certification for Inpatient Patient admitted to: Observation With expected LOS: <2 Midnights Patient will require the following post-hospital care: None Practitioner: I am a practitioner with admitting privileges, knowledge of patient current condition, hospital course, and medical plan of care. Services: Services provided to patient in accordance with Admission requirements found in Title 42 Section 412.3 of the Code of Federal Regulations Patient History Date of Service: 05/06/23 Reason for admission: abdominal pain History of Present Illness: 43-year-old female with a past medical history depression, hyperlipidemia, hypertension, transaminitis, alcohol and tobacco use presents to the emergency room with abdominal pain. She reports abdominal pain began today right upper quadrant does not radiate, and epigastric pain. she reports associated nausea vomiting and diarrhea started today. She denies fever, dysuria, abdominal pain described as burning, plan to admit for cholecystitis, with Dr. Gutierres, Dr. Gómez for consult, plan for MRCP in the a.m. CT of the abdomen pelvisIMPRESSION: Distended gallbladder with numerous dependent layering small calculi. Suggestion of mild pericholecystic fat stranding. Please correlate clinically for evidence of acute cholecystitis.No other acute intra-abdominal process, abdominal ultrasound ordered. Laboratory evaluation WBCs within normal limits, thrombocytopenia 55, hypokalemia 2.7, glucose 138, transaminitis AST 61, elevated alk phos 137, UA leukoesterase greater than 500, urine drug screen positive for THC Allergies No Known Allergies Allergy (Verified 12/30/12 10:34) - Past Medical/Surgical History -: Hypertension -: Hyperlipidemia -: Depression -: Transaminitis Past Surgical History: Patient denies surgical history Psychosocial/ Personal History: , reports uses alcohol 2-3 drinks daily - Social History Smoking Status: Current some day smoker Smoking therapy provided: Yes Alcohol use: Yes Caffeine use: Yes Place of Residence: Home Review of Systems 10-point ROS is otherwise unremarkable Physical Examination - Physical Exam General: Alert, In no apparent distress, Oriented x3 HEENT: Atraumatic, Normocephalic, PERRLA Neck: Supple, 2+ carotid pulse no bruit, JVD not distended Respiratory: Clear to auscultation bilaterally, Normal air movement Cardiovascular: No edema, Normal pulses, Regular rate/rhythm, Normal S1 S2 Capillary refill: <2 Seconds Gastrointestinal: Normal bowel sounds, Tenderness (epigastric, RUQ) Musculoskeletal: No clubbing, No swelling Integumentary: No rashes, No breakdown Neurological: Normal speech, Normal strength at 5/5 x4 extr, Normal tone, Sensation intact - Studies Laboratory Data (last 24 hrs) 05/05/23 05/05/23 18:10 18:10 WBC 6.10 Hgb 12.3 Hct 36.2 Plt Count 55 L Sodium 143 Potassium 2.7 L BUN 9 Creatinine 0.77 Glucose 138 H Total Bilirubin 2.1 H AST 61 H ALT 28 Alkaline Phosphatase 137 H Lipase 96 H Assessment and Plan - Plan Assessment plan Abdominal pain Cholecystitis Transaminitis Hepatitis panel, abd US pending Consult GI for transaminitis, scheduled for MRCP tomorrow Consult surgery for cholecystitis As needed analgesics, antiemetics CT of the abdomen pelvisIMPRESSION: Distended gallbladder with numerous dependent layering small calculi. Suggestion of mild pericholecystic fat stranding. Please correlate clinically for evidence of acute cholecystitis.No other acute intra-abdominal process, abdominal ultrasound ordered. thrombocytopenia hypokalemia thrombocytopenia 55, hypokalemia 2.7 trend electrolytes, replace prn acute cystitis leukoesterase greater than 500, IV Zosyn Hypertension Hyperlipidemia Depression Resume appropriate home meds Alcohol use Tobacco use substance abuse, THC urine drug screen positive for THC educate on cessation CIWA, prn ativan DVT prophylaxis Diet n.p.o. Full code Discharge Plan: Home Plan to discharge in: 24 Hours - Advance Directives Does patient have a Living Will: No Does patient have a Durable POA for Healthcare: No - Code Status/Comfort Care Code Status: Full Code Physician Review: Patient Assessed, Agree with Above Assessment and Plan Critical Care: No Time Spent Managing Pts Care (In Minutes): 50
[2023-05-06] MEDS ORDERED: ONDANSETRON 4 MG/2 ML VIAL IV PRN (01:05)
[2023-05-06] MEDS ORDERED: MORPHINE 4 MG/ML SYR IV PRN (01:13)
[2023-05-06] MEDS ORDERED: FLUMAZENIL 0.1 MG/ML (5 mL VIAL) IV PRN (02:05)
[2023-05-06] MEDS ORDERED: LORAZEPAM 1 MG TABLET PO PRN (02:05)
[2023-05-06] MEDS ORDERED: LORazepam 2 MG/ML VIAL IV PRN (02:05)
[2023-05-06] MEDS: NA CHLORIDE 0.9% 1,000 ML IV SCH ×3 (02:38→18:18)
[2023-05-06] MEDS: LORAZEPAM 1 MG TABLET PO SCH ×3 (02:39→09:41)
[2023-05-06 03:51] VITALS: BMI 27.8
[2023-05-06 04:36] LABS: Protime INR 1.95
[2023-05-06 04:50] LABS: Albumin 2.7 g/dL (3.4-5.0); Bilirubin Direct 1.7 mg/dL (0-0.2); Bilirubin Indirect, Calculated 1.7 mg/dL (0.2-0.8); Bilirubin Total 3.4 mg/dL (0.2-1.0); Protein, Total 7.2 g/dL (6.4-8.2)
[2023-05-06 07:20] LABS: Absolute Lymphocytes (CBC) 1.2 K/uL (0.7-4.9); Hematocrit 31.7 % (36.0-45.0); Lymphocytes % 18.1 % (15.3-44.8); MCV 102.7 fL (80-100); MPV 8.2 fL (7.6-11.3); Platelets 46 thou/uL (152-406); RBC Red Blood Cell Count 3.09 M/uL (3.86-4.86)
[2023-05-06] MEDS ORDERED: metroNIDAZOLE 500 MG TABLET PO ONE (08:24)
[2023-05-06 08:28] LABS: Magnesium 1.2 mg/dL (1.6-2.4); Potassium 3.7 mEq/L (3.5-5.1)
[2023-05-06] MEDS: PIPER TAZO 3.375 GM in NA CHLORIDE 0.9% 100 ML IV SCH ×2 (10:02→18:19)
[2023-05-06] MEDS: FAMOTIDINE 20 MG/2 ML VIAL IV SCH ×2 (10:03→21:22)
[2023-05-06] MEDS: THIAMINE HCL 100 MG TABLET PO SCH (13:00)
[2023-05-06] MEDS: MULTIVITAMIN TAB PO SCH (13:00)
[2023-05-06] MEDS: FOLIC ACID 1 MG TABLET PO SCH (13:00)
--- NOTE | 2023-05-06 13:02 | RAD REPORT ---
EXAM DESCRIPTION: US - Abdomen Exam Limited - 05/05/2023 11:19 pm CLINICAL HISTORY: 43 years, Female, ABD PAIN COMPARISON: Previous CT scan of the abdomen and pelvis performed earlier. TECHNIQUE: Utilizing a curved array transducer, real-time ultrasound evaluation of the abdominal vis cera was performed. Color Doppler imaging was used to assess vascular flow. FINDINGS: The visualized portions of the liver demonstrate to unremarkable. The gallbladder demonstrate to be distended measuring 10.6 x 6.2 cm with the presence of the layering echogenic structure with posterior shadowing corresponding to cholelithiasis/gravel. No gallbladder wall thickening. Questionable very minimal trace pericholecystic fluid adjacent to the liver. The com mon bile duct measures 4.5 mm. No intra or extrahepatic biliary duct dilatation was identified. There is no free fluid within the upper abdomen. IMPRESSION: Distended gallbladder with cholelithiasis/gravel without gallbladder wall thickening or pericholecystic fluid. Questionable very minimal trace pericholecystic fluid adjacent to the liver. I f indicated correlation with a CT scan could be helpful for further evaluation. Electronically signed by: Erasmo Duff MD 05/05/2023 11:43 PM CDT Due to temporary technical issues with the PACS/Fluency reporting system, reports are being signed by the in house radiologist without review as a courtesy to ensure prompt reporting. The interpreting r adiologist is fully responsible for the content of the report.
[2023-05-06 13:35] VITALS: O2SAT 97
[2023-05-06] MEDS ORDERED: metroNIDAZOLE 500 MG TABLET PO SCH (13:45)
[2023-05-06] MEDS ORDERED: MAGNESIUM SULFATE 1 gm IVPB 1 GM/100 ML BAG IV ONE (16:00)
--- NOTE | 2023-05-06 17:52 | P.PN ---
Date of Service: 05/06/23 Patient seen and examined. She was somnolent during my examination. MRCP was ordered to evaluate for acute cholecystitis and had a biliary tree. I am told MRCP could not be done because patient could not hold her breath during the study. Abdominal ultrasound shows multiple small gallstones, no evidence of acute cholecystitis. HIDA scan ordered. Patient with liver cirrhosis, thrombocytopenia and coagulopathy indicating chronic liver failure. She is a poor candidate for surgery. General surgery Dr. Gómez is following.
--- NOTE | 2023-05-06 19:50 | CON ---
Date of Consultation: 05/06/2023 Reason For Consultation: Abdominal pain. History Of Present Illness: The patient is a 43-year-old female, who presents to the emergency room with multiple medical problems and reports having abdominal pain that began yesterday in the right si de of the abdomen without radiation, associated with nausea and vomiting and diarrhea. No constipati on. No blood in her stools. No dysuria, hematuria. No sore throat, runny nose, cough, headaches, d izziness. No chest pain. No fever or chills. The patient on my evaluation, however, was somnolent, has gotten Ativan for her DTs and was not able to answer any questions. Information obtained from [employer]. She had workup done, which revealed cholelithiasis, but no evidence of acute cholecysti tis on the ultrasound. She does have elevated liver function tests and MRCP was ordered by Dr. Bhavik ayala, which has not been done yet. In the meantime, the patient is withdrawing from alcohol, appears to be going into DTs. On admission, there was no sore throat, runny nose, cough, headaches, or dizzine ss. No chest pain. Review of Systems: Otherwise unremarkable. Past Medical History: Significant for hypertension, hyperlipidemia, depression, substance abuse. Past Surgical History: Negative. Allergies: NO ALLERGIES. Social History: The patient drinks 2-3 drinks daily and she does smoke and was counseled. Family History: Noncontributory. Physical Examination: Vital Signs: Her current vital signs are stable. She is afebrile. General: As stated, she is somnolent. She is awake, arousable. Head and Neck: No neck masses. No JVD. Throat clear. Neck is supple. Chest: Clear. Heart: S1, S2. Abdomen: Soft, nondistended. Positive bowel sounds. Minimal right upper quadrant tenderness. No r ebound, rigidity, or guarding. Extremity: Adequately perfused, nontender. Neuro: Nonfocal. Laboratory Data: White count is 6.8, MCV is 102.7, hemoglobin is 10.9, hematocrit is 31.7, platelets are 46. INR is 1.95. Potassium was 2.7, has been replaced, is 3.7. Magnesium is being replaced at 1.2. Total bilirubin is 3.4, direct bilirubin is 1.7, AST is 55. Alkaline phosphatase was elevated , now is 109. Lipase is 96. Ultrasound of the abdomen shows layering of gallstones with a distended gallbladder. No gallbladder wall thickening or pericholecystic fluid. Minimal fluid around the cody er. CT of the abdomen and pelvis reviewed as well, shows distended gallbladder with dependent layeri ng gallstones. The liver shows nodular contour suggesting cirrhosis. Assessment: This is a 43-year-old female with abdominal pain, cholelithiasis, cirrhosis, hep C, alco hol abuse with possible DTs. Recommendation: At this time, the patient is high risk for any kind of procedure. We would recommen d getting an MRCP and if there are stones in the bile duct, then GI should evaluate for ERCP. If it is negative, then I would recommend possibly getting a HIDA scan to make sure the patient does not jain ve acute cholecystitis. The patient needs to be medically much better before she would be considered an adequate risk for anesthesia as the patient has thrombocytopenia and evidence of cirrhosis as wel l as hepatitis C. We will follow this patient while in the hospital, but at this time there is no ne ed for any acute surgical intervention. Please support the patient with antibiotics, pain management , and DVT prophylaxis. /MODL Voice ID: [id number] Report ID: [id number]
[2023-05-06] MEDS ORDERED: POTASSIUM 25 MEQ EFFERV TAB PO ONE (21:00)
[2023-05-06] MEDS ORDERED: MORPHINE 2 MG/ML SYR IV ONE (21:40)
[2023-05-07 04:31] LABS: Absolute Lymphocytes (CBC) 1.5 K/uL (0.7-4.9); Hematocrit 29.3 % (36.0-45.0); Lymphocytes % 33.8 % (15.3-44.8); MCV 102.4 fL (80-100); MPV 7.7 fL (7.6-11.3); Platelets 40 thou/uL (152-406); RBC Red Blood Cell Count 2.86 M/uL (3.86-4.86)
[2023-05-07] MEDS: NA CHLORIDE 0.9% 1,000 ML IV SCH ×2 (04:40→16:41)
[2023-05-07] MEDS: PIPER TAZO 3.375 GM in NA CHLORIDE 0.9% 100 ML IV SCH ×3 (05:00→16:41)
[2023-05-07 05:21] LABS: Albumin 2.5 g/dL (3.4-5.0); Bilirubin Total 1.8 mg/dL (0.2-1.0); Potassium 3.3 mEq/L (3.5-5.1); Protein, Total 6.5 g/dL (6.4-8.2)
--- NOTE | 2023-05-07 07:45 | P.PN ---
Date of Service: 05/07/23 Subjective: nausea continues abdominal pain continues with some significant improvement compared to yesterda y, but still ongoing no acute events overnight afebrile ROS: 10 point ROS as noted above, otherwise negative Physical Exam: GEN: Alert, oriented, NAD HEENT: Normal conjunctiva, sclera anicteric CV: Regular rate and rhythm, no edema Pulm: Nonlabored respirations on room air, diminished at bases bilaterally ABD: Soft, mod RUQ tenderness, nondistended Neuro: Normal speech, normal affect vitals reviewed Problem List: Abdominal pain cholelithiasis, with possible cholecystitis Transaminitis thrombocytopenia hypokalemia Hypertension Hyperlipidemia Depression Alcohol use Tobacco use substance abuse, THC Abdominal pain cholelithiasis, with possible cholecystitis Transaminitis CT abdomen (05/05): Distended gallbladder with numerous dependent layering small calculi. Suggestion of mild pericholecystic fat stranding. abdominal u/s (05/05): Distended gallbladder with cholelithiasis/gravel without gallbladder wall thickening or pericholecystic fluid. Questionable very minimal trace pericholecystic fluid adjacent to the liver. GI consulted MRCP unable to get done d/t patient unable to hold breath 05/06 HIDA scan ordered r/o acute cholecystitis patient reportedly unable to sit still for accurate imaging / MRI Consult surgery for possible cholecystitis no need for any acute surgical intervention at this time, f/u imaging continue Zosyn (05/06-) PRN analgesics, antiemetics PRN pain medication thrombocytopenia hypokalemia trend electrolytes, replace prn Hypertension Hyperlipidemia Depression confirm home medications, restart as appropriate Alcohol use Tobacco use substance abuse, THC Cessation advised. CIWA, prn ativan VTE: SCD Code: Full Dispo: Home , ~2 days
[2023-05-07] MEDS ORDERED: HYDROMORPHONE HCL 2 MG/ML inj IV ONE (08:00)
[2023-05-07] MEDS ORDERED: POTASSIUM CL SA 10 MEQ TAB PO ONE (09:00)
[2023-05-07] MEDS: THIAMINE HCL 100 MG TABLET PO SCH (09:59)
[2023-05-07] MEDS: FOLIC ACID 1 MG TABLET PO SCH (09:59)
[2023-05-07] MEDS: FAMOTIDINE 20 MG/2 ML VIAL IV SCH ×2 (09:59→21:28)
[2023-05-07] MEDS: MULTIVITAMIN TAB PO SCH (09:59)
--- NOTE | 2023-05-07 11:17 | PN ---
Date of Progress Note: 05/07/2023 Subjective: The patient was more awake today. Complaining of minimal abdominal pain. Objective: Vital Signs: Stable. She is currently afebrile. Abdomen: Shows to be soft, nondistended. Positive bowel sounds. Minimal right upper quadrant tende rness. No rebound, rigidity, or guarding. Laboratory Data: Reviewed. White count is 4.4, platelets are 40,000. Chemistry reviewed as well. The patient was unable to tolerate an MRCP, therefore the patient is getting a HIDA scan at this time . Assessment: Cirrhosis, hepatitis C, cholelithiasis, and possible delirium tremens. Recommendation: We will await the HIDA scan exam results first. Then if negative, we will proceed w ith clear liquids and advance slowly. Should she need any intervention, I would recommend a tertiary care facility as she has significant cirrhosis with low albumin, high INR, and low platelets. Plan of care will be discussed with my hospitalist. STANFORD/JARAD Voice ID: [id number] Report ID: [id number]
--- NOTE | 2023-05-07 11:26 | RAD REPORT ---
EXAM DESCRIPTION: NM - Hepatobiliary System W/ Ph - 05/07/2023 11:11 am CLINICAL HISTORY: cholecystitis COMPARISON: No comparisons TECHNIQUE: The patient was administered 6.6 mCi Tc99m Choletec. Imaging of the right upper quadrant was performed initially for up to 60 minutes. Gallbladder ejection fraction determination was then performed utilizing synthetic 1.5 mgm CCK over a slow 30 minute infusion. FINDINGS: Normal hepatic uptake and excretion with appropriate clearance of background blood pool ac tivity. Normal visualization of biliary and small bowel activity. Delayed uptake noted within the gallbladder. The calculated ejection fraction is 12 percent (normal g reater than 35%). Subjective pain reported by the patient: Pre-procedure - no symptoms During or subsequent to synthetic CCK infusion - no symptoms IMPRESSION: Delayed gallbladder visualization and of low ejection fraction could be secondary to chr onic cholecystitis. The patient did not report any symptoms with CCK infusion. Patient cystic duct an d patent sphincter of Oddi. Delayed visualization of the gallbladder but normal biliary to bowel carrillo sit. Ejection fraction is 12% (normal greater than 35%).
[2023-05-07] MEDS ORDERED: LOPERAMIDE HCL 2 MG CAPSULE PO STA (20:25)
[2023-05-08] MEDS ORDERED: LORAZEPAM 1 MG TABLET PO SCH (02:00)
[2023-05-08 04:20] LABS: Absolute Lymphocytes (CBC) 1.3 K/uL (0.7-4.9); Lymphocytes % 38.2 % (15.3-44.8); MCV 101.4 fL (80-100); MPV 7.5 fL (7.6-11.3); Platelets 40 thou/uL (152-406); RBC Red Blood Cell Count 2.86 M/uL (3.86-4.86)
[2023-05-08 04:44] LABS: Albumin 2.3 g/dL (3.4-5.0); Bilirubin Total 1.7 mg/dL (0.2-1.0); Magnesium 1.4 mg/dL (1.6-2.4); Potassium 3.6 mEq/L (3.5-5.1); Protein, Total 6.2 g/dL (6.4-8.2)
[2023-05-08] MEDS: PIPER TAZO 3.375 GM in NA CHLORIDE 0.9% 100 ML IV SCH ×2 (05:23→08:57)
[2023-05-08] MEDS: NA CHLORIDE 0.9% 1,000 ML IV SCH (07:20)
--- NOTE | 2023-05-08 07:43 | P.PN ---
Date of Service: 05/08/23 Subjective: ROS: 10 point ROS as noted above, otherwise negative Physical Exam: GEN: Alert, oriented, NAD HEENT: Normal conjunctiva, sclera anicteric CV: Regular rate and rhythm, no edema Pulm: Nonlabored respirations on room air, diminished at bases bilaterally ABD: Soft, mod RUQ tenderness, nondistended Neuro: Normal speech, normal affect vitals reviewed Problem List: Abdominal pain cholelithiasis, with possible cholecystitis Transaminitis thrombocytopenia hypokalemia Hypertension Hyperlipidemia Depression Alcohol use Tobacco use substance abuse, THC Abdominal pain cholelithiasis, with possible cholecystitis Transaminitis CT abdomen (05/05): Distended gallbladder with numerous dependent layering small calculi. Suggestion of mild pericholecystic fat stranding. abdominal u/s (05/05): Distended gallbladder with cholelithiasis/gravel without gallbladder wall thickening or pericholecystic fluid. Questionable very minimal trace pericholecystic fluid adjacent to the liver. GI consulted MRCP unable to get done d/t patient unable to hold breath 05/06 HIDA scan ordered r/o acute cholecystitis patient reportedly unable to sit still for accurate imaging / MRI Consult surgery for possible cholecystitis no need for any acute surgical intervention at this time, f/u imaging continue Zosyn (05/06-) PRN analgesics, antiemetics PRN pain medication thrombocytopenia hypokalemia trend electrolytes, replace prn Hypertension Hyperlipidemia Depression confirm home medications, restart as appropriate Alcohol use Tobacco use substance abuse, THC Cessation advised. CIWA, prn ativan VTE: SCD Code: Full Dispo: Home , ~2 days
[2023-05-08] MEDS: FOLIC ACID 1 MG TABLET PO SCH (08:57)
[2023-05-08] MEDS: THIAMINE HCL 100 MG TABLET PO SCH (08:57)
[2023-05-08] MEDS: MULTIVITAMIN TAB PO SCH (08:57)
[2023-05-08] MEDS: FAMOTIDINE 20 MG/2 ML VIAL IV SCH (08:57)
[2023-05-08] MEDS ORDERED: Magnesium Sulfate 2gm IVPB 2 G/50 ML BAG IV ONE (09:00)
[2023-05-08] MEDS ORDERED: POTASSIUM 25 MEQ EFFERV TAB PO ONE (09:00)
--- NOTE | 2023-05-08 11:20 | PN ---
Date of Progress Note: 05/08/2023 Subjective: The patient is awake and alert, tolerating clear liquids. Complains of pain occasionall y. Objective: Vital Signs: Stable. She is currently afebrile. Please note that she has not required any IV pain medicine for the last 24 hours. Abdomen: Soft, nondistended. Positive bowel sounds. Minimal tenderness, but no rebound, rigidity, or guarding. Laboratory Data: Her white count is 3.5, H and H is 10.3 and 29.0. Her platelets are 40,000. Her L FTs are slightly improved. Assessment: Chronic cholecystitis likely in a patient with hepatitis C, cirrhosis. Recommendations: I advised the patient that she should avoid alcohol at all cost because her disease will only progress and get worse. I advised her to follow up with her liver doctor and if she does need surgery, it should be done at a tertiary care facility because her comorbidities are significant and she may require a liver specialist and architect marine after surgery. Plan of care discussed in det ail with Dr. Mas. STANFORD/JARAD Voice ID: [id number] Report ID: [id number]
--- NOTE | 2023-05-08 15:16 | P.DS ---
Admission Date: 05/06/23 Discharge Date: 05/08/23 Disposition: ROUTINE DISCHARGE Reason for Admission: abdominal pain Consultations: General surgery - Dr. Gómez GI - Dr. Benedict Brief History of Present Illness: 43yo F, PMH: depression, hyperlipidemia, hypertension, transaminitis, alcohol and tobacco use Patient presents to the emergency room with abdominal pain. She reports abdominal pain began today right upper quadrant does not radiate, and epigastric pain. she reports associated nausea vomiting and diarrhea started today. She denies fever, dysuria, abdominal pain described as burning, plan to admit for cholecystitis, with Dr. Gutierres, Dr. Gómez for consult, plan for MRCP in the a.m. CT of the abdomen pelvisIMPRESSION: Distended gallbladder with numerous dependent layering small calculi. Suggestion of mild pericholecystic fat stranding. Please correlate clinically for evidence of acute cholecystitis.No other acute intra-abdominal process, abdominal ultrasound ordered. Hospital Course: Problem List: Abdominal pain cholelithiasis, with gallbladder dysfunction Transaminitis thrombocytopenia hypokalemia Hypertension Hyperlipidemia Depression Alcohol use Tobacco use substance abuse, THC Patient presented with abdominal pain. Initial CT abdomen noted distended gallbladder with numerous dependent layering small calculi. GI and general surgery were consulted. MRCP was unable to get done due to patient unable to hold breath / stay still. Patient was found to have cholelithiasis with gallbladder dysfunction (HIDA scan noted delayed gallbladder visualization with low EF of 12%; normal > 35%). No evidence of cholecystitis. Her pain was felt to be secondary to gallbladder dysfunction with possible GERD component. Recommend follow up with GI/liver specialist and general surgery in a few weeks for further eval / monitoring and discuss further for optimization for elective cholecystectomy at a tertiary care center given her medical history and risk of complications. Patient was given empiric zosyn to treat for possible infection. Patient remained afebrile without leukocytosis throughout hospitalization and is to complete course of PO Augmentin on discharge. Patient was feeling better, abdominal pain / nausea improved, and was deemed stable for discharge home. Advised low-fat / low cholesterol diet to avoid triggers / minimize recurrent episodes. Medication: New: Augmentin as discussed, prilosec over the counter, daily Follow up: PCP 3-5 days GI in a few weeks Physical Exam: GEN: Alert, oriented, NAD HEENT: Normal conjunctiva, sclera anicteric CV: Regular rate and rhythm, no edema Pulm: Nonlabored respirations on room air, diminished at bases bilaterally ABD: Soft, mod RUQ tenderness, nondistended Neuro: Normal speech, normal affect Vital Signs/Physical Exam: Temp Pulse Resp BP Pulse Ox 98.5 F 76 14 98/64 95 05/08/23 12:00 05/08/23 12:00 05/08/23 12:00 05/08/23 12:00 05/08/23 12:00 Laboratory Data at Discharge: WBC 3.50 thou/uL (4.3-10.9) L 05/08/23 04:07 Hgb 10.3 g/dL (12.0-15.0) L 05/08/23 04:07 Hct 29.0 % (36.0-45.0) L 05/08/23 04:07 Plt Count 40 thou/uL (152-406) L 05/08/23 04:07 PT 21.5 SECONDS (9.5-12.5) H 05/06/23 03:43 INR 1.95 05/06/23 03:43 Sodium 142 mEq/L (136-145) 05/08/23 04:07 Potassium 3.6 mEq/L (3.5-5.1) 05/08/23 04:07 BUN 7 mg/dL (7-18) 05/08/23 04:07 Creatinine 0.67 mg/dL (0.55-1.02) 05/08/23 04:07 Glucose 86 mg/dL (74-106) 05/08/23 04:07 Phosphorus 4.0 mg/dL (2.5-4.9) 05/06/23 03:43 Magnesium Cancelled 05/08/23 15:00 Total Bilirubin 1.7 mg/dL (0.2-1.0) H 05/08/23 04:07 AST 52 U/L (15-37) H 05/08/23 04:07 ALT 26 U/L (13-56) 05/08/23 04:07 Alkaline Phosphatase 94 U/L (45-117) 05/08/23 04:07 Lipase 48 U/L (13-75) 05/08/23 04:07 Home Medications: Amox/Clavulanate [Augmentin 875-125 Tab*] 875 mg PO BID 7 Days #14 tab 05/08/23 New Medications: Amox/Clavulanate [Augmentin 875-125 Tab*] 875 mg PO BID 7 Days #14 tab Physician Discharge Instructions: Patient presented with abdominal pain. Initial CT abdomen noted distended gallbladder with numerous dependent layering small calculi. GI and general surgery were consulted. MRCP was unable to get done due to patient unable to hold breath / stay still. Patient was found to have cholelithiasis with gallbladder dysfunction (HIDA scan noted delayed gallbladder visualization with low EF of 12%; normal > 35%). No evidence of cholecystitis. Her pain was felt to be secondary to gallbladder dysfunction with possible GERD component. Recommend follow up with GI/liver specialist and general surgery in a few weeks for further eval / monitoring and discuss further for optimization for elective cholecystectomy at a tertiary care center given her medical history and risk of complications. Patient was given empiric zosyn to treat for possible infection. Patient remained afebrile without leukocytosis throughout hospitalization and is to complete course of PO Augmentin on discharge. Patient was feeling better, abdominal pain / nausea improved, and was deemed stable for discharge home. Advised low-fat / low cholesterol diet to avoid triggers / minimize recurrent episodes. Medication: New: Augmentin as discussed, prilosec over the counter, daily Follow up: PCP 3-5 days GI in a few weeks Followup: NONE,NONE [Primary Care Provider] - Time spent managing pt's care (in minutes): 45
[2023-05-08 16:10] VITALS: BP 123/67; TEMP 98.7
[2023-05-08] MEDS ORDERED: AMOX/K CLAV 875 MG TAB PO SCH (21:00)
== END 2023-05-08 16:30 | disposition home or self-care (01) ==
LOC: ER 17:27 → ERHOLD 05-06 01:36 → 4TH 05-06 01:45
PROVIDERS: ADMIT Internal Medicine; ATTEND Hospitalist
DX: K80.10 Calculus of gallbladder with chronic cholecystitis without obstruction (principal); K82.8 Other specified diseases of gallbladder; F32.A Depression, unspecified; E78.5 Hyperlipidemia, unspecified; I10 Essential (primary) hypertension; R74.01 Elevation of levels of liver transaminase levels; F10.90 Alcohol use, unspecified, uncomplicated; Z72.0 Tobacco use; R11.2 Nausea with vomiting, unspecified; R19.7 Diarrhea, unspecified; D69.6 Thrombocytopenia, unspecified; E87.6 Hypokalemia; N30.00 Acute cystitis without hematuria; F12.10 Cannabis abuse, uncomplicated; K74.60 Unspecified cirrhosis of liver; B19.20 Unspecified viral hepatitis C without hepatic coma
CPT/HCPCS: 36415; 74177; 76705; 78227; 80053; 80076; 80307; 81001; 81025; 83690; 83735; 84100; 84132; 85025; 85610; 87086; 87088; 99285; A9537; G0378; J2270; J2405; J2543; J2805; J3010; J3475; J3480; J7030; Q9967